=== PATIENT | male | born 1990 | race Two or more races ===

== ENCOUNTER 2023-01-28 16:10 | Emergency (ER) | payer OTHER ==
[~2023-01-28] VITALS: Ht 167.6 cm; Wt 98.0 kg
== END 2023-01-28 18:38 | disposition home or self-care (01) ==
LOC: ER 16:10
DX: L72.3 Sebaceous cyst (principal)

== ENCOUNTER 2024-07-26 11:15 | Emergency (ER) | payer OTHER ==
[~2024-07-26] VITALS: Ht 170.2 cm; Wt 104.3 kg
[2024-07-26] MEDS ORDERED: BUTALB/ACETAMINOPHEN/CAFFEINE 1 TAB TABLET PO ONE ×4 (13:57→17:21)
[2024-07-26 14:29] LABS: HEMOGLOBIN 13.6 g/dL (13-16.00); MEAN CELL VOLUME 85.2 fL (80.0-100.00); MEAN CORPUSCULAR HEMOGLOBIN 28.3 pg (27.00-32.0); MEAN CORPUSCULAR HGB CONC 33.3 g/dl (32.0-36.0); PLATELET COUNT 191 K/uL (150-450); RED BLOOD COUNT 4.81 M/uL (4.00-6.00); RED CELL DISTRIBUTION WIDTH 13.9 % (11.5-14.5)
[2024-07-26 14:49] LABS: CALCIUM 9.2 mg/dL (8.5-10.1); CREATININE SERUM 1.04 mg/dL (0.70-1.30); GFR 82.76; POTASSIUM 4.05 mEq/L (3.5-5.1)
== END 2024-07-26 17:35 | disposition home or self-care (01) ==
LOC: ER 11:17
PROVIDERS: Emergency Medicine
DX: B34.9 Viral infection, unspecified (principal); R51.9 Headache, unspecified; Z20.822 Contact with and (suspected) exposure to COVID-19